=== PATIENT | male | born 1995 ===

== ENCOUNTER 2018-07-19 17:18 | Emergency (ER) | payer MEDICAID ==
--- NOTE | 2018-07-19 17:31 | C.PDOC ---
History Of Present Illness 23 year old male presents to ED with complaint of right foot pain s/p trip and fall that occurred FLOORHAND. He states that he was walking and tripped on an uneven pavement, but didn't fall completely. He was able to brace himself against a car. He rates the pain as an 8/10 in severity. Patient states that it is difficult to bear weight on the foot. He denies any other injuries, dizziness, weakness, numbness, and tingling. Time Seen by Provider: 07/19/18 17:28 Chief Complaint (Nursing): Lower Extremity Problem/Injury History Per: Patient History/Exam Limitations: no limitations Onset/Duration Of Symptoms: Hrs Current Symptoms Are (Timing): Still Present Pain Scale Rating Of: 8 - Ankle/Foot Description Of Injury: Fell Currently Unable To: Bear Weight Past Medical History Reviewed: Historical Data, Nursing Documentation, Vital Signs Vital Signs: Last Vital Signs Temp 98.6 F 07/19/18 17:24 Pulse 70 07/19/18 17:24 Resp 18 07/19/18 17:24 BP 116/76 07/19/18 17:24 Pulse Ox 100 07/19/18 17:24 Primary Care Provider: Humberto Ramos - Medical History PMH: No Chronic Diseases Surgical History: No Surg Hx Family History: States: Unknown Family Hx - Social History Hx Alcohol Use: No Hx Substance Use: No Review Of Systems Constitutional: Negative for: Weakness, Malaise Musculoskeletal: Positive for: Foot Pain (right foot pain ) Neurological: Negative for: Weakness, Numbness, Headache, Dizziness Physical Exam - Physical Exam Appears: Well, Non-toxic, No Acute Distress Skin: Normal Color, Warm, Dry Head: Atraumatic, Normacephalic Eye(s): bilateral: Normal Inspection, PERRL, EOMI Neck: Normal ROM, Supple Chest: Symmetrical, No Deformity Cardiovascular: Rhythm Regular, No Murmur Respiratory: No Accessory Muscle Use, No Rales, No Rhonchi, No Wheezing Gastrointestinal/Abdominal: Soft, No Tenderness Extremity: Capillary Refill (<2 seconds), Swelling (ankle joint bilaterally, no bruising, no redness) Pulses: Left Dorsalis Pedis: Normal, Right Dorsalis Pedis: Normal Neurological/Psych: Oriented x3, Normal Speech, Normal Cognition, Normal Sensation ED Course And Treatment O2 Sat by Pulse Oximetry: 100 (in RA) Pulse Ox Interpretation: Normal - Other Rad right foot x-ray X-Ray: Viewed By Me, Read By Radiologist Interpretation: Right foot radiographs, three views. HISTORY: s/p fall. COMPARISON: None available. FINDINGS: BONES: No acute displaced fracture. JOINTS: No dislocation. SOFT TISSUES: Soft tissue swelling. No evidence of radiopaque foreign body. OTHER FINDINGS: None. IMPRESSION: Soft tissue swelling. No acute displaced fracture, dislocation, or significant joint effusion identified. If symptoms persist or if there is clinical concern, x-ray follow-up in 7-10 days should be considered. right ankle x-ray X-Ray: Viewed By Me, Read By Radiologist Interpretation: PROCEDURE: Right ankle radiographs, three views. Right foot radiographs, three views. HISTORY: s/p fall. COMPARISON: None available. FINDINGS: BONES: No acute displaced fracture. JOINTS: No dislocation. SOFT TISSUES: Soft tissue swelling. No evidence of radiopaque foreign body. OTHER FINDINGS: None. IMPRESSION: Soft tissue swelling. No acute displaced fracture, dislocation, or significant joint effusion identified. If symptoms persist or if there is clinical concern, x-ray follow-up in 7-10 days should be considered. Medical Decision Making Medical Decision Making: Impression: 23 year old male presents to ED with complaint of right foot pain s/p trip and fall that occurred FLOORHAND. Initial Plan:Motrin PO right ankle and foot xray ordered and reviewed- no fracture or dislocation ankle wrapped with roxanne bandage patient stable for discharge Disposition Counseled Patient/Family Regarding: Studies Performed, Diagnosis, Need For Followup, Rx Given - Disposition Referrals: [facility] [Outside] Orthopedic Clinic at [Outside] Disposition: HOME/ ROUTINE Disposition Time: 18:17 Condition: STABLE Additional Instructions: Continue Motrin as needed for pain Rest, Ice, Compression, and Elevation Follow up in Clinic Return to ED if symptoms worsen Prescriptions: Ibuprofen [Motrin] 600 mg PO Q8 PRN #30 tab PRN Reason: Pain, Moderate (4-7) Instructions: Foot Sprain (DC) Forms: [employer] (French), Work Excuse Print Language: BHUTANESE - Clinical Impression Clinical Impression: Right foot pain - 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 (Angie Washington) - Scribe Statement The provider has reviewed the documentation as recorded by the Scribe (Angie Washington) All medical record entries made by the Scribe were at my direction and personally dictated by me. I have reviewed the chart and agree that the record accurately reflects my personal performance of the history, physical exam, medical decision making, and the department course for this patient. I have also personally directed, reviewed, and agree with the discharge instructions and disposition.
[2018-07-19 17:58] VITALS: BP 116/76; PULSE 70; RESP 18; TEMP 98.6; O2SAT 100
--- NOTE | 2018-07-19 18:00 | RAD ---
PROCEDURE: Right ankle radiographs, three views Right foot radiographs, three views HISTORY: s/p fall COMPARISON: None available. FINDINGS: BONES: No acute displaced fracture. JOINTS: No dislocation. SOFT TISSUES: Soft tissue swelling. No evidence of radiopaque foreign body. OTHER FINDINGS: None. IMPRESSION: Soft tissue swelling. No acute displaced fracture, dislocation, or significant joint effusion identified. If symptoms persist or if there is clinical concern, x-ray follow-up in 7-10 days should be considered.
== END 2018-07-19 18:48 | disposition home or self-care (01) ==
LOC: C.ER 17:18
DX: M79.671 Pain in right foot (principal); W01.0XXA Fall on same level from slipping, tripping and stumbling without subsequent striking against object, initial encounter; Y93.01 Activity, walking, marching and hiking